=== PATIENT | female | born 1985 | race Caucasian/White ===

== ENCOUNTER 2024-11-08 08:53 | Emergency (ER) | payer OTHER, SELFPAY ==
[2024-11-08] VITALS (8 sets, daily range): BP systolic 91–131; BP diastolic 72–88; PULSE 84–107
--- NOTE | 2024-11-08 10:02 | ED.GENMED ---
History of Present Illness
<CHARLIE Song - Last Filed: 11/08/24 17:58>
General
Chief Complaint: Dizziness
Source: patient
Exam Limitations: none
Time Seen by Provider: 11/08/24 10:01
Nursing documentation reviewed up to this point in time: agreed with
History of Present Illness
History of Present Illness:
Patient is a 39-year-old female with past medical history of degenerative disc disease and neck, vestibular migraines of vertigo and IBS-C presents to the ER for evaluation. Patient had symptoms for the past year of chronic lightheadedness which
intensifies at times and worsens with position change. Symptoms are associated with discomfort in left rib area/chest neck abdomen and leg. She reports she does get associated tingling of the left side of her head with pressure to the left side of
her head. She has episodes where the lightheadedness intensifies. She Had various workups including cardiology and neurology. She has been to multiple ER including [facility] in [facility]. Stress test, negative Holter monitor negative
EKGs negative tilt test. She is seen neurology has had negative ultrasounds of the carotid arteries and had MRIs and CAT scans of her brain all of which are the negative
Review of Systems
<CHARLIE Song - Last Filed: 11/08/24 17:58>
Review of Systems
Allergies reviewed?: Yes
All Other Systems: ROS reviewed and negative except as documented in HPI and ROS
Respiratory: Reports no symptoms; Denies trouble breathing
Cardiac: Reports other (lightheadedness )
ABD/GI: Reports nausea
: Reports no symptoms
Musculoskeletal: Reports no symptoms
Skin: Reports no symptoms
Neurological: Reports dizzy and numbness
Psychiatric: Reports no symptoms
Phy Exam
<CHARLIE Song - Last Filed: 11/08/24 17:58>
General Physical Exam
General Presentation: no apparent distress
General age: appears stated age
General Skin: warm and dry
General Habitus: normal
General Mental: alert
General Hydration: appears well hydrated
Eye Exam
Eye Exam: PERRL and EOMI
Cardiovascular Exam
Cardiovascular Exam: regular rate/rhythm, no murmur and normal peripheral pulses
Pulmonary Exam
Pulmonary Exam: lungs clear and no respiratory distress
Neurological Exam
Neurological Exam: alert, oriented x3, no motor deficits and no sensory deficits
Musculoskeletal Exam
Musculoskeletal Exam: full ROM
Skin Exam
Skin Exam: normal color and warm/dry
Psychiatric Exam
Psychiatric Exam: normal mood/affect
Course
<CHARLIE Song - Last Filed: 11/08/24 17:58>
Orders/Labs/Results
Orders:
Orders
11/08/24 08:57
EKG [Electrocardiogram (*1)] Urgent
Reason for Study: Palpitations
EKG- Treatment ONCE
11/08/24 10:21
Orthostatic VS- Treatment ONCE
11/08/24 10:22
Cardiac Monitoring- Treatment ONCE
IV Insert/Care/Rem.- Treatment PRN
11/08/24 10:33
Test Result ONCE
11/08/24 10:34
Complete Blood Count/With Diff Urgent
Comprehensive Metabolic Panel Urgent
HCG, Serum Qualitative Screen Urgent
TSH Urgent
Total Thyroxine Urgent
Troponin I Urgent
11/08/24 12:41
Add On- LAB Urgent
Tests Added?: t 4
Abnormal Lab Results
11/08/24
10:34
MPV 10.5 H fL
(7.4-10.4)
Carbon Dioxide 21 L mmol/L
(22-30)
TSH 0.29 L uIU/ml
(0.47-4.68)
11/08/24 10:34
11/08/24 10:34
Vital Signs
Initial and Last Documented VS:
Initial Vital Signs
Temp Pulse Resp BP Pulse Ox
98.3 F 73 18 131/74 100
11/08/24 08:56 11/08/24 08:56 11/08/24 08:56 11/08/24 08:56 11/08/24 08:56
Last Documented Vital Signs
Temp Pulse Resp BP Pulse Ox
98.3 F 68 18 105/72 96
11/08/24 08:56 11/08/24 13:00 11/08/24 08:56 11/08/24 13:00 11/08/24 13:00
Monogram Machine Operator consulted with Physician
Monogram Machine Operator consulted with physician?: Yes
Name of Physician Consulted: Dr Villarreal
<Wing Villarreal, DO - Last Filed: 11/08/24 13:08>
Orders/Labs/Results
Orders:
Orders
11/08/24 08:57
EKG [Electrocardiogram (*1)] Urgent
Reason for Study: Palpitations
EKG- Treatment ONCE
11/08/24 10:21
Orthostatic VS- Treatment ONCE
11/08/24 10:22
Cardiac Monitoring- Treatment ONCE
IV Insert/Care/Rem.- Treatment PRN
11/08/24 10:33
Test Result ONCE
11/08/24 10:34
Complete Blood Count/With Diff Urgent
Comprehensive Metabolic Panel Urgent
HCG, Serum Qualitative Screen Urgent
TSH Urgent
Total Thyroxine Urgent
Troponin I Urgent
11/08/24 12:41
Add On- LAB Urgent
Tests Added?: t 4
Abnormal Lab Results
11/08/24
10:34
MPV 10.5 H fL
(7.4-10.4)
Carbon Dioxide 21 L mmol/L
(22-30)
TSH 0.29 L uIU/ml
(0.47-4.68)
11/08/24 10:34
11/08/24 10:34
Vital Signs
Initial and Last Documented VS:
Initial Vital Signs
Temp Pulse Resp BP Pulse Ox
98.3 F 73 18 131/74 100
11/08/24 08:56 11/08/24 08:56 11/08/24 08:56 11/08/24 08:56 11/08/24 08:56
Last Documented Vital Signs
Temp Pulse Resp BP Pulse Ox
98.3 F 68 18 105/72 96
11/08/24 08:56 11/08/24 13:00 11/08/24 08:56 11/08/24 13:00 11/08/24 13:00
<CHARLIE Song - Last Filed: 11/08/24 17:58>
MDM/Problems Addressed
MDM/Problems Addressed:
Patient as document is a 39-year-old female who is a chronic symptoms including lightheadedness nausea numbness and tingling. She has had multiple workups at several hospitals including MRI and CAT scans of brain CT of chest EKG and several ER
workups during workup she was given a questionable possibility of dysautonomia.
She had an episode today which prompted patient to come to the ER. She however presents very nontoxic on exam her labs unremarkable her TSH was low but her T4 was normal
She was eval by ED physician it is recommended that she follow-up for possible dysautonomia workup recommended the [facility]
<CHARLIE Song - Last Filed: 11/08/24 17:58>
*Pulse Oximetry
Patient hypoxic: no
*EKG
Interpreted by ED Provider?: Yes
Heart Rate: 100
Rate: normal
Rhythm: sinus
Ischemia: no ischemia
*Critical Care Note
Total Time (30-74mins, 75-104mins- exclusive of procedures): Not Applicable
ED Attending Note
<CHARLIE Song - Last Filed: 11/08/24 17:58>
-
Portions of this chart may have been created with voice recognition software.� Occasional wrong word or��sound alike� substitutions may have occurred due to the inherent limitations of voice recognition software.
<Wing Villarreal DO - Last Filed: 11/08/24 13:08>
ED Attending Note
Patient seen and examined by attending physician: Yes
I performed the substantive portion of visit, reviewed & personally made and approve the management plan that is documented in note by myself or TALIA.: Yes
ED Attending Note:
39-year-old female who presents with symptoms as described above. Patient has had the symptoms over a long period time and has seen multiple specialist. Some of her outpatient workup was reviewed by me. She has had an MRI of the brain, CT of the
chest without contrast, CT of the chest with contrast, CT of the abdomen, echocardiogram. Already has grossly unremarkable. Patient has seen pulmonology, cardiology and neurology. They are considering doing an EEG which she has not done yet.
Assessment and plan: Could consider focal seizure but unlikely. Question dysautonomia. She does mention that her blood pressure seems to fluctuate significantly from hypertensive to hypotensive and this could certainly be a possibility. I do
think that outpatient follow-up with [facility] could be warranted.
Discharge Plan
Departure
Patient Disposition: Home (Routine Discharge)
Date of Disposition: 11/08/24
Time of Disposition: 13:05
Patient with high blood pressure during this ER visit?: No
Discharge Problem:
Dizziness, Near syncope, Palpitations
Instructions: Dizziness
Referrals:
Teri Kelley DO [Family Provider] -
Activity Restrictions/Additional Instructions:
Please consider taking magnesium glycinate (400 mg) daily. Please also consider taking zinc and vitamin D daily. Please follow-up as an outpatient consider seeing a specialist in dysautonomia. Also consider follow-up with neurology as planned for
EEG. Return immediately for chest pain, difficulty breathing, passing out episode or any other concerns.
[facility] Dr....Oana Quang MD, PhD
Interventions
Interventions:
*Risk Screen - Suicide Last Done: 11/08/24 12:00
*General Assessment Last Done: 11/08/24 12:00
*Neglect/Abuse Screening Last Done: 11/08/24 12:00
*ED- Fall Risk Assessment Last Done: 11/08/24 12:00
*Nursing Disposition Last Done: 11/08/24 13:25
ED- Neurological Assessment Last Done: 11/08/24 12:00
ED- Cardiac Assessment Last Done: 11/08/24 12:00
ED Swallowing Screen Last Done: 11/08/24 12:00
Discharge Date and Time
Discharge Date/Time: 11/08/24 13:25
Print Language: [id number]
[2024-11-08 10:55] LABS: % Basophils 0.4 % (0-2); % Eosinophils 0.5 % (0-6); % Immature Granulocytes 0.1 % (0-0.5); % Lymphocytes 23.7 % (20.5-51.1); % Monocytes 5.1 % (1.7-9.3); % Neutrophils 70.2 % (42.2-75.2); Absolute Lymphocytes 1.9 10^3/uL (1.2-3.4); Absolute Monocytes 0.4 10^3/uL (0.1-0.6); Absolute Neutrophils 5.6 10^3/uL (1.4-6.5); Hematocrit 41.4 % (37.0-47.0); Hemoglobin 14.3 g/dL (12.0-16.0); Mean Corp Hgb Conc. 34.5 g/dL (33.0-37.0); Mean Corpuscular Hgb 30.6 pg (27.0-31.0); Mean Corpuscular Volume 88.5 fL (81.0-99.0); Mean Platelet Volume 10.5 fL (7.4-10.4); Nucleated Red Blood Cells % 0 %; Platelet Count 246 10^3/uL (130-400); Red Blood Cell Count 4.68 10^6/uL (4.20-5.40); Red Cell Dist. Width 12.8 % (11.5-14.5)
[2024-11-08 11:16] LABS: HCG, Serum Qualitative Screen Negative; Troponin I < 0.012 ng/ml
[2024-11-08 11:23] LABS: ALT (SGPT) 21 U/L (0-35); AST (SGOT) 23 U/L (14-36); Alkaline Phosphatase 71 U/L (38-126); Blood Urea Nitrogen 9 mg/dl (7-17); Calcium 9.2 mg/dl (8.4-10.2); Carbon Dioxide 21 mmol/L (22-30); Chloride 106 mmol/L (98-107); Glucose 94 mg/dl (70-99); Potassium 3.9 mmol/L (3.5-5.1); Sodium 137 mmol/L (135-145); Total Bilirubin 0.7 mg/dl (0.2-1.3); Total Protein 6.7 g/dl (6.3-8.2); eGFR > 60.00
[2024-11-08 11:53] LABS: TSH 0.29 uIU/ml (0.47-4.68)
[2024-11-08 15:12] LABS: Total Thyroxine 8.41 ug/dl (5.5-11.0)
== END 2024-11-08 13:25 | disposition home or self-care (01) ==
LOC: EMR 08:53
PROVIDERS: Nurse Practitioner; EMERGENCY PHYSICIAN Emergency Medicine; FAMILY PHYSICIAN Family Medicine
DX: R42 Dizziness and giddiness (principal); R55 Syncope and collapse; R00.2 Palpitations
CPT/HCPCS: 99284; 80053; 84436; 84443; 84484; 84703; 85025; 93005